=== PATIENT | female | born 1965 | race Caucasian/White ===

== ENCOUNTER → 2017-02-15 | Outpatient (CLI) | payer BC | LOC: COL.RAD 15:26 | DX: R13.10 Dysphagia, unspecified (principal); R22.1 Localized swelling, mass and lump, neck ==

== ENCOUNTER 2020-08-06 07:48 | Day surgery (SDC) | payer OTHER ==
[~2020-08-06] VITALS: Ht 167.6 cm; Wt 67.9 kg
[2020-08-06 08:03] VITALS: BP 124/85; PULSE 70; TEMP 98.9
[2020-08-06] MEDS ORDERED: ARMOUR THYROID60 MG PO (08:14)
[2020-08-06 09:10] VITALS: BP 113/62; PULSE 68
--- NOTE | 2020-08-06 09:10 | NUR ---
TO BAY 4 PER CART FROM ENDOSCOPY. ALERT ORIENTED X3, AMBULATED TO RECLINER WITH ASSIST. RECEIVED WATER AND JELLO.
[2020-08-06 09:25] VITALS: BP 113/82; PULSE 77
--- NOTE | 2020-08-06 09:25 | NUR ---
DR BARBA TALKED WITH PATIENT. ATE 100% AND TOLERATED WELL.
[2020-08-06 09:40] VITALS: BP 128/82; PULSE 68
--- NOTE | 2020-08-06 09:40 | NUR ---
RECEIVED DISCHARGE INSTRUCTIONS AND VERBALIZED UNDERSTANDING. DISCONTINUED IV AND INT- CATHETER INTACT CALLED FOR RIDE HOME AND GETTING DRESSED.
--- NOTE | 2020-08-06 10:00 | NUR ---
DISCHARGED PER WC BY NURSING STAFF TO PRIVATE CAR IN CARE OF LATOYA.
== END 2020-08-06 10:16 | disposition home or self-care (01) ==
LOC: SDCO 07:48
DX: Z12.11 Encounter for screening for malignant neoplasm of colon (principal); D12.0 Benign neoplasm of cecum; E03.9 Hypothyroidism, unspecified; M70.61 Trochanteric bursitis, right hip; M70.62 Trochanteric bursitis, left hip; K21.9 Gastro-esophageal reflux disease without esophagitis; D64.9 Anemia, unspecified; Z20.822 Contact with and (suspected) exposure to COVID-19
CPT/HCPCS: J2704; J7030

== ENCOUNTER 2020-09-08 19:19 | Emergency (ER) | payer OTHER ==
[~2020-09-08] VITALS: Ht 167.6 cm; Wt 68.2 kg
[~2020-09-08 19:19] MED LIST: ARMOUR THYROID60 MG PO
[2020-09-08 19:51] VITALS: TEMP 98.7
[2020-09-08 20:55] VITALS: BP 142/75; PULSE 84
== END 2020-09-08 20:53 | disposition home or self-care (01) ==
LOC: COL.ER 19:19
DX: S60.211A Contusion of right wrist, initial encounter (principal); X58.XXXA Exposure to other specified factors, initial encounter